=== PATIENT | female | born 1960 | race African-American/Black ===

== ENCOUNTER 2017-03-28 15:38 | Emergency (ER) | payer OTHER ==
[~2017-03-28] VITALS: Ht 160 cm; Wt 72.0 kg
[~2017-03-28 15:38] MED LIST: AMLO10TA2 PO; NAPR500T PO; ROBA750T PO
[2017-03-28 15:45] VITALS: BP 137/65; PULSE 74; RESP 24; TEMP 98.6; O2SAT 99
--- NOTE | 2017-03-28 15:46 | PD ---
Physical Exam Date Seen by Provider: Mar 28, 2017 Time Seen by Provider: 15:45 Narrative 57 yo male here for back pain after pushing a bed with a patient in it. Worker' s comp. Pain is bad. Already has back issues. Happened today. pain is 8/10. Able to walk. Does not radiate. No falls. Vitals are stable in triage. Awaiting Bed placement. [facility] Medical Record Reviewed: Yes Supervised Visit with AMBER: No Davon Rodriguez Mar 28, 2017 15:46
[2017-03-28] MEDS ORDERED: ROBA500T PO (16:51)
[2017-03-28] MEDS ORDERED: IBUP800T23 PO (16:51)
--- NOTE | 2017-03-28 16:52 | PD ---
HPI Chief Complaint: Musculoskeletal Complaint Time Seen by Provider: 16:48 Travel History International Travel<30 days: No Contact w/Intl Traveler<30days: No Traveled to known affect area: No History of Present Illness HPI 57-year-old female presents to emergency department with complaint of low back pain after pushing a bed while at work today. She is a [employer] employee and the injury occurred at work. She has history of chronic back pain and had MRI of her entire spine back in December with herniated disks. Back pain is worse on the right than the left. Reports radiation of pain down both of her legs. Denies encopresis, incontinence, saddle anesthesias. Reports numbness and tingling in her right foot occasionally. Denies loss of sensation, decreased range of motion, decreased strength to bilateral lower extremity is. Denies difficulty ambulating. Denies IV drug use or cancer. Denies fever, vomiting, abdominal pain. Denies difficulty stooling or with urination. Has not taken any medications or tried any treatments to alleviate her symptoms. Symptoms are mild in severity. Has no other medical complaints. Allergies to sulfa and penicillin. No other modifying factors or associated signs and symptoms. PFSH Past Medical History Hypertension: Yes ?: Not LMP: na : 2 Para: 2 Past Surgical History Section: Yes Cholecystectomy: Yes Social History Alcohol Use: No Tobacco Use: No Allergies-Medications (Allergen,Severity, Reaction): Coded Allergies: penicillin G (Verified Allergy, Severe, Anaphylaxis, 03/28/17) Sulfa (Sulfonamide Antibiotics) (Verified Allergy, Intermediate, ITCHING, 03/28/17) Reported Meds & Prescriptions Reported Meds & Active Scripts Active Ibuprofen 800 Mg Tab 800 Mg PO Q6HR PRN Robaxin (Methocarbamol) 500 Mg Tab 500 Mg PO QID PRN Robaxin (Methocarbamol) 750 Mg Tab 750 Mg PO TID PRN Naproxen 500 Mg Tab 500 Mg PO BID 7 Days Reported Amlodipine (Amlodipine Besylate) 10 Mg Tab 10 Mg PO DAILY Review of Systems Except as stated in HPI: all other systems reviewed are Neg Physical Exam Narrative GENERAL: Well-nourished, well-developed female patient, in no acute distress; afebrile, nontoxic-appearing SKIN: Warm and dry. HEAD: Atraumatic. Normocephalic. EYES: Pupils equal and round. No scleral icterus. No injection or drainage. ENT: Mucosa pink and moist. Airway patent. NECK: Trachea midline. CARDIOVASCULAR: Regular rate. RESPIRATORY: No accessory muscle use. GASTROINTESTINAL: Rounded. MUSCULOSKELETAL: Bilateral lower extremities supple and non-tense with 2+ pedal pulses and sensory intact; with full range of motion and 5/5 strength. 2 + DTRs bilaterally. Active dorsiflexion and extension of bilateral feet. Right straight leg raise is positive for low back pain. Ambulatory in room with normal gait. Sitting up in bed at 90. No obvious deformities. No clubbing. No cyanosis. No edema. BACK: Midline point tenderness on palpation of the lumbar spine. Tenderness on palpation of bilateral lumbar paraspinal and iliosacral area. No obvious deformities. NEUROLOGICAL: Awake and alert. Oriented 3. No obvious cranial nerve deficits. Motor grossly within normal limits. Normal speech. Moves all extremities. 5/5 strength to all extremities. Sensory intact. PSYCHIATRIC: Appropriate mood and affect; insight and judgment normal. Data Data Last Documented VS Vital Signs Date Time Temp Pulse Resp B/P (MAP) Pulse Ox O2 Delivery O2 Flow Rate FiO2 03/28/17 15:45 98.6 74 24 137/65 (89) 99 Room Air Orders Orders Ketorolac Inj (Toradol Inj) (03/28/17 17:00) Orphenadrine Inj (Norflex Inj) (03/28/17 17:00) [facility] Medical Decision Making Medical Screen Exam Complete: Yes Emergency Medical Condition: Yes Medical Record Reviewed: Yes Differential Diagnosis Low back strain, sciatica, acute exacerbation of chronic low back pain, Narrative Course 57-year-old female with history of chronic back pain with acute exacerbation and low back strain while pushing a bed at work today. She is [employer] employee and the injury occurred while at work today. Denies encopresis, incontinence, saddle anesthesias. Denies IV drug use or cancer. Patient does have midline tenderness on patient of the lumbar spine. I offered to do an x-ray of the lumbar spine and the patient declined. Patient is able to in the room with a normal gait. She had MRIs of her entire spine done in December which showed herniated disks. Toradol and Norflex administered in the ER. Ibuprofen and Robaxin prescribed for home. Instructed patient to follow up with primary care provider. Patient verbalizes understanding and agreement with treatment plan. Patient is medically cleared and stable for discharge. Discussed reasons to return to the emergency department. Patient agrees with treatment plan. The patients vital signs are stable and the patient is stable for outpatient follow- up and treatment. Patient discharged home, stable and in no acute distress. Diagnosis Primary Impression: Low back strain Qualified Codes: S39.012A - Strain of muscle, fascia and tendon of lower back , initial encounter Additional Impression: Acute exacerbation of chronic low back pain Referrals: Primary Care Physician Patient Instructions: General Instructions, Low Back Strain (ED), Lower Back Exercises (ED) Additional Instructions: Tylenol or ibuprofen as directed and as needed for pain Robaxin as prescribed and as needed for muscle spasms Heating pad and/or ice to affected area to reduce pain Avoid aggravating activities; increase activity as tolerated Follow-up with primary care provider Return to emergency department immediately with worsening of symptoms Med/Other Pt SpecificInfo: Prescription(s) given Scripts Ibuprofen (Ibuprofen) 800 Mg Tab 800 MG PO Q6HR Y for PAIN, #30 TAB 0 Refills Prov: Denise Pearson 03/28/17 Methocarbamol (Robaxin) 500 Mg Tab 500 MG PO QID Y for MUSCLE SPASM, #30 TAB 0 Refills Prov: Denies Pearson 03/28/17 Disposition: 01 DISCHARGE HOME Condition: Stable Denise Pearson Mar 28, 2017 16:51
[2017-03-28] MEDS ORDERED: ORPHENADRINE INJ 60 MG/2 ML AMP IM ONE (17:00)
[2017-03-28] MEDS ORDERED: KETOROLAC TROMETHAMINE 60 MG/2 ML (IM) VIAL IM ONE (17:00)
== END 2017-03-28 17:14 | disposition home or self-care (01) ==
LOC: NEPK 15:38
DX: S39.012A Strain of muscle, fascia and tendon of lower back, initial encounter (principal); X50.0XXA Overexertion from strenuous movement or load, initial encounter; Y93.F9 Activity, other caregiving; Y99.0 Civilian activity done for income or pay
CPT/HCPCS: 96372; 96374; 99284; J1885; J2360

== ENCOUNTER → 2017-06-18 | Outpatient (CLI) | payer OTHER ==
[~2017-06-18] MED LIST changes: +IBUP1TAB7 PO; -NAPR500T PO; +NAPR500T2 PO; +ROBA500T PO
[2017-06-18 11:42] LABS: AUTOMATED NEUTROPHIL # 5.2 TH/MM3 (1.8-7.7); BASOPHIL % 0.4 % (0.0-2.0); EOSINOPHIL # 0.1 TH/MM3 (0-0.4); EOSINOPHIL % 0.7 % (0.0-4.0); HEMATOCRIT 42.1 % (35.0-46.0); HEMO FLAGS DIFF FINAL; LYMPH % 43.3 % (9.0-44.0); LYMPHOCYTE # 4.7 TH/MM3 (1.0-4.8); MEAN CELL VOLUME 87.4 FL (80.0-100.0); MEAN CORPUSCULAR HEMOGLOBIN 29.7 PG (27.0-34.0); MONO % 7.7 % (0.0-8.0); NEUT % 47.9 % (16.0-70.0); PLATELET COUNT 371 TH/MM3 (150-450); RED BLOOD COUNT 4.82 MIL/MM3 (4.00-5.30); RED CELL DISTRIBUTION WIDTH 16.2 % (11.6-17.2); WHITE BLOOD COUNT 10.9 TH/MM3 (4.0-11.0)
[2017-06-18 12:21] LABS: WESTERGREN SEDIMENTATION RATE 18 mm/hr (0-30)
[2017-06-18 13:29] LABS: ALKALINE PHOSPHATASE 67 U/L (45-117); ALT (GPT) 26 U/L (10-53); ANION GAP 7 MEQ/L (5-15); AST (GOT) 20 U/L (15-37); BICARBONATE 26.9 MEQ/L (21.0-32.0); BLOOD UREA NITROGEN 11 MG/DL (7-18); CHLORIDE 102 MEQ/L (98-107); GLOMERULAR FILTRATION RATE 148 ML/MIN (>89); GLUCOSE,FASTING 82 MG/DL (74-99); POTASSIUM 3.2 MEQ/L (3.5-5.1); SODIUM (NA) 136 MEQ/L (136-145)
[2017-06-18 17:10] LABS: TOTAL BILIRUBIN ADULT 0.4 MG/DL (0.2-1.0)
[2017-06-20 16:29] LABS: ANA SCREEN POS (NEG)
== END ==
LOC: CLAB 11:04
PROVIDERS: ATTEND Allergy & Immunology
DX: M05.741 Rheumatoid arthritis with rheumatoid factor of right hand without organ or systems involvement (principal)
CPT/HCPCS: 36415; 80053; 85025; 85652; 86038; 86039; 86140; 86200; 86430